=== PATIENT | male | born 1940 | race Caucasian/White ===

== ENCOUNTER 2017-07-21 08:00 | Outpatient (CLI) | payer MEDICARE ==
[2017-07-21 13:10] LABS: ALBUMIN/GLOBULIN RATIO 1.3 (1.0-2.2); BILIRUBIN,TOTAL 0.7 mg/dL (0.2-1.0); BUN - BLOOD UREA NITROGEN 20 mg/dL (6-20); CALCIUM 8.9 mg/dL (8.5-10.3); CARBON DIOXIDE - CO2 25 mmol/L (21-32); CHLORIDE 104 mmol/L (101-111); CHOL/HDL RATIO 3.9 (<5.0); CHOLESTEROL 154 mg/dL; CREATININE 0.9 mg/dL (0.6-1.2); GFR - MDRD 82 (>89); GLUCOSE 138 mg/dL (70-100); HDL CHOLESTEROL 40 mg/dL; LDL/HDL RATIO 1.9 (<3.6); SODIUM 136 mmol/L (135-145); TOTAL PROTEIN 7.3 g/dL (6.7-8.2); TRIGLYCERIDES 191 mg/dL; VLDL CHOLESTEROL 38 mg/dL
== END 2017-07-21 08:01 | disposition home or self-care (01) ==
LOC: LAB.N 08:00
PROVIDERS: ATTEND Internal Medicine Cardiovascular Disease
DX: I25.10 Atherosclerotic heart disease of native coronary artery without angina pectoris (principal)
CPT/HCPCS: 36415; 80053; 80061

== ENCOUNTER 2017-09-21 15:00 | Outpatient (CLI) | payer MEDICARE, OTHER ==
[2017-09-21 13:14] LABS: HEMOGLOBIN A1C 0.56 g/dL
[2017-09-21 13:15] LABS: CALCIUM 8.8 mg/dL (8.5-10.3)
== END 2017-09-21 15:01 | disposition home or self-care (01) ==
LOC: LAB.N 15:00
PROVIDERS: ATTEND Family Medicine
DX: R73.01 Impaired fasting glucose (principal)
CPT/HCPCS: 36415; 80048; 83036

== ENCOUNTER 2018-02-02 08:00 | Outpatient (CLI) | payer MEDICARE, OTHER ==
[2018-02-02 12:35] LABS: HB2 TOTAL 13.8 g/dL; HEMOGLOBIN A1C 0.48 g/dL; HEMOGLOBIN A1C % 5.3 % (4.6-6.2)
== END 2018-02-02 08:01 | disposition home or self-care (01) ==
LOC: LAB.N 08:00
PROVIDERS: ATTEND Physician Assistant Medical
DX: R73.01 Impaired fasting glucose (principal); E78.5 Hyperlipidemia, unspecified; I10 Essential (primary) hypertension; E66.9 Obesity, unspecified; I25.10 Atherosclerotic heart disease of native coronary artery without angina pectoris
CPT/HCPCS: 36415; 83036

== ENCOUNTER 2018-05-17 09:03 | Outpatient (CLI) | payer MEDICARE, OTHER ==
[2018-05-17 13:37] LABS: BASOPHILS # (AUTO) 0.1 10^3/uL (0.0-0.1); BASOPHILS % (AUTO) 0.8 %; EOSINOPHILS # (AUTO) 0.4 10^3/uL (0.0-0.7); EOSINOPHILS % (AUTO) 5.1 %; HGB - HEMOGLOBIN 12.7 g/dL (14.0-18.0); LYMPHOCYTES % (AUTO) 25.8 %; MEAN CORPUSCULAR HEMOGLOBIN 33.7 pg (27.0-31.0); MEAN CORPUSCULAR HGB CONC 33.4 g/dL (32.0-36.0); MEAN CORPUSCULAR VOLUME 100.7 fL (80.0-94.0); MEAN PLATELET VOLUME 9.4 fL (7.4-11.4); MONOCYTES # (AUTO) 1.3 10^3/uL (0.0-1.0); MONOCYTES % (AUTO) 16.5 %; NEUTROPHILS # (AUTO) 4.1 10^3/uL (1.5-6.6); NEUTROPHILS % (AUTO) 51.8 %; PLT - PLATELET COUNT 235 10^3/uL (130-450); RED BLOOD COUNT 3.77 10^6/uL (4.70-6.10); RED CELL DISTRIBUTION WIDTH 13.4 % (12.0-15.0); WHITE BLOOD COUNT 7.8 x10^3/uL (4.8-10.8)
[2018-05-17 14:22] LABS: ALBUMIN 3.8 g/dL (3.2-5.5); ALKALINE PHOSPHATASE 43 IU/L (42-121); ALT ALANINE AMINOTRANSFERASE 11 IU/L (10-60); AST ASPARTATE AMINOTRANSFERASE 20 IU/L (10-42); BILIRUBIN,TOTAL 0.7 mg/dL (0.2-1.0); BUN - BLOOD UREA NITROGEN 23 mg/dL (6-20); CALCIUM 9.1 mg/dL (8.5-10.3); CARBON DIOXIDE - CO2 27 mmol/L (21-32); CHLORIDE 103 mmol/L (101-111); CHOL/HDL RATIO 3.9 (<5.0); CHOLESTEROL 161 mg/dL; GFR - MDRD 72 (>89); GLUCOSE 124 mg/dL (70-100); HDL CHOLESTEROL 41 mg/dL; LDL CHOLESTEROL,CALCULATED 84 mg/dL; SODIUM 137 mmol/L (135-145); TOTAL PROTEIN 7.6 g/dL (6.7-8.2); VLDL CHOLESTEROL 36 mg/dL
== END 2018-05-17 09:04 | disposition home or self-care (01) ==
LOC: LAB.N 09:03
PROVIDERS: ATTEND Family Medicine
DX: E78.5 Hyperlipidemia, unspecified (principal); I10 Essential (primary) hypertension
CPT/HCPCS: 36415; 80053; 80061; 83721; 85025

== ENCOUNTER 2018-07-13 08:00 | Outpatient (CLI) | payer MEDICARE, OTHER ==
[2018-07-13 13:45] LABS: BASOPHILS % (AUTO) 0.7 %; EOSINOPHILS # (AUTO) 0.4 10^3/uL (0.0-0.7); EOSINOPHILS % (AUTO) 5.5 %; HGB - HEMOGLOBIN 12.7 g/dL (14.0-18.0); LYMPHOCYTES # (AUTO) 1.7 10^3/uL (1.5-3.5); LYMPHOCYTES % (AUTO) 25.7 %; MEAN CORPUSCULAR HEMOGLOBIN 34.2 pg (27.0-31.0); MEAN CORPUSCULAR HGB CONC 34.9 g/dL (32.0-36.0); MEAN PLATELET VOLUME 9.6 fL (7.4-11.4); MEAN RETIC VALUE 120.4; MONOCYTES # (AUTO) 1.2 10^3/uL (0.0-1.0); MONOCYTES % (AUTO) 17.8 %; NEUTROPHILS # (AUTO) 3.4 10^3/uL (1.5-6.6); NEUTROPHILS % (AUTO) 50.3 %; PLT - PLATELET COUNT 197 10^3/uL (130-450); RED BLOOD COUNT 3.71 10^6/uL (4.70-6.10); RED CELL DISTRIBUTION WIDTH 13.7 % (12.0-15.0); WHITE BLOOD COUNT 6.7 x10^3/uL (4.8-10.8)
[2018-07-13 13:54] LABS: HB2 TOTAL 13.8 g/dL; HEMOGLOBIN A1C 0.53 g/dL; HEMOGLOBIN A1C % 5.7 % (4.6-6.2)
[2018-07-13 14:03] LABS: CALCIUM 9.1 mg/dL (8.5-10.3)
[2018-07-13 14:11] LABS: FERRITIN 306.8 ng/mL (23.9-336.2)
== END 2018-07-13 08:01 | disposition home or self-care (01) ==
LOC: LAB.N 08:00
PROVIDERS: ATTEND Family Medicine
DX: D53.9 Nutritional anemia, unspecified (principal); R73.01 Impaired fasting glucose
CPT/HCPCS: 36415; 80048; 82607; 82728; 82746; 83036; 83540; 84466; 85025; 85044

== ENCOUNTER 2019-07-14 08:00 | Outpatient (CLI) | payer MEDICARE, OTHER ==
[2019-07-14 12:02] LABS: BASOPHILS # (AUTO) 0.1 10^3/uL (0.0-0.1); BASOPHILS % (AUTO) 0.7 %; EOSINOPHILS # (AUTO) 0.4 10^3/uL (0.0-0.7); EOSINOPHILS % (AUTO) 5.6 %; HGB - HEMOGLOBIN 11.5 g/dL (14.0-18.0); LYMPHOCYTES # (AUTO) 1.9 10^3/uL (1.5-3.5); LYMPHOCYTES % (AUTO) 27.5 %; MEAN CORPUSCULAR HEMOGLOBIN 33.2 pg (27.0-31.0); MEAN CORPUSCULAR HGB CONC 31.9 g/dL (32.0-36.0); MEAN CORPUSCULAR VOLUME 104.3 fL (80.0-94.0); MEAN PLATELET VOLUME 11.7 fL (7.4-11.4); MONOCYTES # (AUTO) 1.2 10^3/uL (0.0-1.0); MONOCYTES % (AUTO) 17.7 %; NEUTROPHILS # (AUTO) 3.2 10^3/uL (1.5-6.6); NEUTROPHILS % (AUTO) 48.2 %; PLT - PLATELET COUNT 206 10^3/uL (130-450); RED BLOOD COUNT 3.46 10^6/uL (4.70-6.10); RED CELL DISTRIBUTION WIDTH 13.5 % (12.0-15.0); WHITE BLOOD COUNT 6.7 x10^3/uL (4.8-10.8)
[2019-07-14 12:13] LABS: ALBUMIN/GLOBULIN RATIO 1.2 (1.0-2.2); ALKALINE PHOSPHATASE 35 IU/L (42-121); ALT ALANINE AMINOTRANSFERASE 12 IU/L (10-60); AST ASPARTATE AMINOTRANSFERASE 21 IU/L (10-42); BILIRUBIN,TOTAL 0.6 mg/dL (0.2-1.0); BUN - BLOOD UREA NITROGEN 19 mg/dL (6-20); CALCIUM 9.3 mg/dL (8.5-10.3); CARBON DIOXIDE - CO2 28 mmol/L (21-32); CHLORIDE 106 mmol/L (101-111); CHOL/HDL RATIO 4.3 (<5.0); CHOLESTEROL 150 mg/dL; CREATININE 0.9 mg/dL (0.6-1.2); GFR - MDRD 82 (>89); GLUCOSE 124 mg/dL (70-100); HDL CHOLESTEROL 35 mg/dL; LDL CHOLESTEROL,CALCULATED 71 mg/dL; SODIUM 140 mmol/L (135-145); TOTAL PROTEIN 7.4 g/dL (6.7-8.2); VLDL CHOLESTEROL 44 mg/dL
== END 2019-07-14 23:59 | disposition home or self-care (01) ==
LOC: LAB.N 08:00
PROVIDERS: ATTEND Family Medicine
DX: E78.5 Hyperlipidemia, unspecified (principal); Z12.5 Encounter for screening for malignant neoplasm of prostate; I10 Essential (primary) hypertension
CPT/HCPCS: 36415; 80061; G0103; 80053; 83721; 84153; 84443; 85025

== ENCOUNTER 2019-08-11 10:58 | Outpatient (CLI) | payer MEDICARE, OTHER ==
[2019-08-11 18:42] LABS: ABSOLUTE RETICS # AUTO 0.062 10^6/uL (0.020-0.110); BASOPHILS # (AUTO) 0.1 10^3/uL (0.0-0.1); BASOPHILS % (AUTO) 0.9 %; EOSINOPHILS # (AUTO) 0.4 10^3/uL (0.0-0.7); EOSINOPHILS % (AUTO) 4.7 %; HGB - HEMOGLOBIN 12.5 g/dL (14.0-18.0); LYMPHOCYTES # (AUTO) 2.1 10^3/uL (1.5-3.5); MEAN CORPUSCULAR HEMOGLOBIN 34.8 pg (27.0-31.0); MEAN CORPUSCULAR HGB CONC 33.2 g/dL (32.0-36.0); MEAN CORPUSCULAR VOLUME 104.7 fL (80.0-94.0); MEAN PLATELET VOLUME 11.6 fL (7.4-11.4); MONOCYTES # (AUTO) 1.4 10^3/uL (0.0-1.0); MONOCYTES % (AUTO) 17.7 %; NEUTROPHILS % (AUTO) 50.2 %; PLT - PLATELET COUNT 212 10^3/uL (130-450); RED BLOOD COUNT 3.59 10^6/uL (4.70-6.10); RED CELL DISTRIBUTION WIDTH 13.2 % (12.0-15.0)
[2019-08-11 19:04] LABS: % IRON SATURATION 38 % (20-50); IRON 105 ug/dL (45-182); TOTAL IRON BINDING CAPACITY 274 ug/dL (250-450); TRANSFERRIN 196 mg/dL (180-329)
[2019-08-11 19:24] LABS: FOLATE 20.89 ng/mL (5.90 - >24.8)
== END 2019-08-11 23:59 | disposition home or self-care (01) ==
LOC: LAB.N 10:58
PROVIDERS: ATTEND Family Medicine
DX: D64.9 Anemia, unspecified (principal)
CPT/HCPCS: 36415; 82607; 82728; 82746; 83540; 84466; 85025; 85044

== ENCOUNTER 2019-08-14 10:58 | Outpatient (CLI) | payer MEDICARE, OTHER | END 2019-08-14 23:59 | disposition home or self-care (01) | LOC: LAB.R 10:58 | PROVIDERS: ATTEND Family Medicine | DX: D64.9 Anemia, unspecified (principal) | CPT/HCPCS: 82274 ==

== ENCOUNTER 2019-08-24 11:07 | Day surgery (SDC) | payer MEDICARE, OTHER ==
[2019-08-24] MEDS ORDERED: MIDAZOLAM 2 MG/2 ML VIAL IVP ONE (11:08)
[2019-08-24] MEDS ORDERED: fentaNYL 250 MCG/5 ML VIAL IVP ONE (11:08)
[2019-08-24] MEDS ORDERED: LACTATED RINGERS 1,000 ML IV ONE (11:27)
[2019-08-24 13:58] VITALS: BP 128/78
== END 2019-08-24 11:08 | disposition home or self-care (01) ==
LOC: SDS 11:07
PROVIDERS: ATTEND Surgery
PROC: 0DBM8ZZ Excision of Descending Colon, Via Natural or Artificial Opening Endoscopic (ICD-10-PCS; 2019-08-24)
PROC: 0DBN8ZZ Excision of Sigmoid Colon, Via Natural or Artificial Opening Endoscopic (ICD-10-PCS; 2019-08-24)
PROC: 0DBH8ZZ Excision of Cecum, Via Natural or Artificial Opening Endoscopic (ICD-10-PCS; principal; 2019-08-24 12:30)
DX: R19.5 Other fecal abnormalities (principal); D12.5 Benign neoplasm of sigmoid colon; D12.4 Benign neoplasm of descending colon; D12.0 Benign neoplasm of cecum; K64.8 Other hemorrhoids; K57.30 Diverticulosis of large intestine without perforation or abscess without bleeding; R09.89 Other specified symptoms and signs involving the circulatory and respiratory systems; I10 Essential (primary) hypertension; I25.10 Atherosclerotic heart disease of native coronary artery without angina pectoris; E66.9 Obesity, unspecified; Z68.41 Body mass index [BMI] 40.0-44.9, adult
CPT/HCPCS: 45380; 45385; J3010; J7120

== ENCOUNTER 2019-09-01 12:34 | Outpatient (CLI) | payer MEDICARE, OTHER ==
--- NOTE | 2019-09-04 14:16 | Ultrasound Report ---
Reason: L BRUIT Procedure Date: 09/01/2019 Accession Number: [id number] / [id number] Procedure: US - Carotid Doppler Complete CPT Code: FULL RESULT: EXAM: BILATERAL CAROTID AND VERTEBRAL ARTERY DUPLEX DOPPLER ULTRASOUND: EXAM DATE: 09/01/2019 01:37 PM CLINICAL HISTORY: Left bruit. COMPARISON: None. TECHNIQUE: Grayscale imaging, color Doppler, and duplex spectral Doppler were used to evaluate the carotid and vertebral arteries bilaterally. Static images were obtained. FINDINGS: Mild to moderate mixed calcified and noncalcified plaque is seen in the right greater than left internal carotid arteries. Normal antegrade flow is present in bilateral vertebral arteries. VELOCITIES (cm/sec): Right CCA mid: PSV 94 cm/sec CCA dist: PSV 95 cm/sec ICA prox: PSV 95 cm/sec, EDV 19 cm/sec ICA mid: PSV 96 cm/sec, EDV 30 cm/sec ICA dist: PSV 127 cm/sec, EDV 33 cm/sec ECA: PSV 130 cm/sec Vert: PSV 58 cm/sec ICA/CCA: 1.02 Left CCA mid: PSV 86 cm/sec CCA dist: PSV 76 cm/sec ICA prox: PSV 104 cm/sec, EDV 26 cm/sec ICA mid: PSV 75 cm/sec, EDV 23 cm/sec ICA dist: PSV 73 cm/sec, EDV 23 cm/sec ECA: PSV 168 cm/sec Vert: PSV 86 cm/sec ICA/CCA: 1.2 IMPRESSION: 1. 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 2. Elevated velocities in the right distal ICA is consistent with 50-69% stenosis. 3. In the left carotid artery there are no elevated carotid artery velocities to suggest hemodynamically significant stenosis. 4. Normal antegrade flow is present in bilateral vertebral arteries. General Recommendations: Stenosis =50% ICA - Follow-up ultrasound 6-12 months Stenosis <50% ICA - High Risk Patient with plaque - Follow-up ultrasound 1-2 years Normal Study but High Risk Patient - Follow-up ultrasound 3-5 years Management recommendations and diagnostic criteria are based on current IAC endorsed standards in Carotid Artery Stenosis: Grayscale and Doppler Ultrasound Diagnosis. Validated velocity measurements with angiographic measurements and velocity criteria are extrapolated from diameter data as defined by the Society of Radiologists in Ultrasound Consensus Conference Radiology 2003; 229;340-346. RADIA
== END 2019-09-01 12:35 | disposition home or self-care (01) ==
LOC: DI 12:34
PROVIDERS: ATTEND Surgery
DX: I65.23 Occlusion and stenosis of bilateral carotid arteries (principal)
CPT/HCPCS: 93880

== ENCOUNTER 2020-07-29 08:00 | Outpatient (CLI) | payer MEDICARE, OTHER ==
[2020-07-29 12:07] LABS: BASOPHILS # (AUTO) 0.1 10^3/uL (0.0-0.1); BASOPHILS % (AUTO) 0.9 %; EOSINOPHILS # (AUTO) 0.5 10^3/uL (0.0-0.7); EOSINOPHILS % (AUTO) 5.9 %; HGB - HEMOGLOBIN 12.3 g/dL (14.0-18.0); LYMPHOCYTES # (AUTO) 2.1 10^3/uL (1.5-3.5); LYMPHOCYTES % (AUTO) 27.1 %; MEAN CORPUSCULAR HEMOGLOBIN 35.3 pg (27.0-31.0); MEAN CORPUSCULAR HGB CONC 33.3 g/dL (32.0-36.0); MEAN PLATELET VOLUME 11.3 fL (7.4-11.4); MONOCYTES # (AUTO) 1.4 10^3/uL (0.0-1.0); MONOCYTES % (AUTO) 18.3 %; NEUTROPHILS # (AUTO) 3.7 10^3/uL (1.5-6.6); NEUTROPHILS % (AUTO) 47.2 %; PLT - PLATELET COUNT 214 10^3/uL (130-450); RED BLOOD COUNT 3.48 10^6/uL (4.70-6.10); RED CELL DISTRIBUTION WIDTH 13.2 % (12.0-15.0); WHITE BLOOD COUNT 7.9 x10^3/uL (4.8-10.8)
[2020-07-29 12:27] LABS: ALBUMIN 4.1 g/dL (3.2-5.5); ALBUMIN/GLOBULIN RATIO 1.3 (1.0-2.2); ALKALINE PHOSPHATASE 37 IU/L (42-121); ALT ALANINE AMINOTRANSFERASE 13 IU/L (10-60); AST ASPARTATE AMINOTRANSFERASE 21 IU/L (10-42); BILIRUBIN,TOTAL 0.7 mg/dL (0.2-1.0); BUN - BLOOD UREA NITROGEN 17 mg/dL (6-20); CARBON DIOXIDE - CO2 25 mmol/L (21-32); CHLORIDE 107 mmol/L (101-111); CHOL/HDL RATIO 4.7 (<5.0); CHOLESTEROL 188 mg/dL; CREATININE 0.9 mg/dL (0.6-1.2); GLUCOSE 121 mg/dL (70-100); HDL CHOLESTEROL 40 mg/dL; LDL CHOLESTEROL,CALCULATED 80 mg/dL; SODIUM 140 mmol/L (135-145); TOTAL PROTEIN 7.3 g/dL (6.7-8.2); VLDL CHOLESTEROL 68 mg/dL
== END 2020-07-29 23:59 | disposition home or self-care (01) ==
LOC: LAB.WCP 08:00
PROVIDERS: ATTEND Internal Medicine Cardiovascular Disease
DX: I10 Essential (primary) hypertension (principal); I25.10 Atherosclerotic heart disease of native coronary artery without angina pectoris
CPT/HCPCS: 36415; 80053; 80061; 83721; 84443; 85025

== ENCOUNTER 2020-11-26 08:07 | Outpatient (CLI) | payer MEDICARE, OTHER ==
[2020-11-26 12:31] LABS: BASOPHILS % (AUTO) 0.8 %; EOSINOPHILS % (AUTO) 5.1 %; HGB - HEMOGLOBIN 12.5 g/dL (14.0-18.0); LYMPHOCYTES % (AUTO) 19.5 %; MEAN CORPUSCULAR HEMOGLOBIN 35.7 pg (27.0-31.0); MEAN CORPUSCULAR HGB CONC 33.9 g/dL (32.0-36.0); MEAN CORPUSCULAR VOLUME 105.4 fL (80.0-94.0); NEUTROPHILS % (AUTO) 58.3 %; PLT - PLATELET COUNT 228 10^3/uL (130-450); RED CELL DISTRIBUTION WIDTH 13.2 % (12.0-15.0); WHITE BLOOD COUNT 9.8 x10^3/uL (4.8-10.8)
[2020-11-26 12:37] LABS: ABNORMAL LYMPHS % (MANUAL) 0 %
[2020-11-26 12:49] LABS: ALBUMIN 4.1 g/dL (3.2-5.5); ALBUMIN/GLOBULIN RATIO 1.2 (1.0-2.2); ALKALINE PHOSPHATASE 39 IU/L (42-121); ALT ALANINE AMINOTRANSFERASE 12 IU/L (10-60); AST ASPARTATE AMINOTRANSFERASE 20 IU/L (10-42); BILIRUBIN,TOTAL 0.8 mg/dL (0.2-1.0); BUN - BLOOD UREA NITROGEN 18 mg/dL (6-20); CALCIUM 9.1 mg/dL (8.5-10.3); CARBON DIOXIDE - CO2 25 mmol/L (21-32); CHLORIDE 102 mmol/L (101-111); CHOL/HDL RATIO 3.5 (<5.0); CHOLESTEROL 146 mg/dL; CREATININE 1.1 mg/dL (0.6-1.2); GLUCOSE 141 mg/dL (70-100); HDL CHOLESTEROL 42 mg/dL; LDL CHOLESTEROL,CALCULATED 77 mg/dL; LDL/HDL RATIO 1.8 (<3.6); SODIUM 136 mmol/L (135-145); TOTAL PROTEIN 7.4 g/dL (6.7-8.2); VLDL CHOLESTEROL 27 mg/dL
[2020-11-26 12:58] LABS: CREATININE,URINE 323.4 mg/dL; MICROALBUM/CREATININE RATIO,UR 116.9 ug/mg (<30.0); MICROALBUMIN,URINE 37.8 mg/dL (0-300.0)
[2020-11-26 13:31] LABS: BAND NEUTROPHILS % (MANUAL) 1 %; BASOPHILS # (MANUAL) 0.1 10^3/uL (0-0.1); BASOPHILS % (MANUAL) 1 %; EOSINOPHILS # (MANUAL) 0.7 10^3/uL (0-0.7); LYMPHOCYTES # (MANUAL) 1.8 10^3/uL (1.5-3.5); LYMPHOCYTES % (MANUAL) 18 %; MONOCYTES # (MANUAL) 1.5 10^3/uL (0.0-1.0)
[2020-11-26 13:32] LABS: DIFFERENTIAL COMMENT MANUAL DIFFERENTIAL; PLATELET ESTIMATE, MANUAL NORMAL (130-450,000) (NORMAL); PLATELET MORPHOLOGY NORMAL APP (NORMAL)
[2020-11-26 13:46] LABS: HEMOGLOBIN A1c% 5.7 % (4.27-6.07)
== END 2020-11-26 08:08 | disposition home or self-care (01) ==
LOC: LAB.N 08:07
PROVIDERS: ATTEND Internal Medicine
DX: I10 Essential (primary) hypertension (principal); R73.01 Impaired fasting glucose
CPT/HCPCS: 36415; 80053; 80061; 82043; 82570; 83036; 83721; 84443; 85025

== ENCOUNTER 2021-07-09 10:45 | Outpatient (CLI) | payer MEDICARE, OTHER ==
[2021-07-09 17:39] LABS: BASOPHILS # (AUTO) 0.1 10^3/uL (0.0-0.1); BASOPHILS % (AUTO) 0.8 %; EOSINOPHILS # (AUTO) 0.5 10^3/uL (0.0-0.7); EOSINOPHILS % (AUTO) 5.5 %; HCT - HEMATOCRIT 38.7 % (42.0-52.0); HGB - HEMOGLOBIN 12.6 g/dL (14.0-18.0); LYMPHOCYTES # (AUTO) 2.3 10^3/uL (1.5-3.5); MEAN CORPUSCULAR HEMOGLOBIN 34.6 pg (27.0-31.0); MEAN CORPUSCULAR HGB CONC 32.6 g/dL (32.0-36.0); MEAN CORPUSCULAR VOLUME 106.3 fL (80.0-94.0); MEAN PLATELET VOLUME 12.1 fL (7.4-11.4); MONOCYTES # (AUTO) 1.4 10^3/uL (0.0-1.0); MONOCYTES % (AUTO) 16.4 %; NEUTROPHILS # (AUTO) 4.2 10^3/uL (1.5-6.6); NEUTROPHILS % (AUTO) 49.8 %; PLT - PLATELET COUNT 225 10^3/uL (130-450); RED BLOOD COUNT 3.64 10^6/uL (4.70-6.10); RED CELL DISTRIBUTION WIDTH 13.3 % (12.0-15.0); WHITE BLOOD COUNT 8.4 x10^3/uL (4.8-10.8)
[2021-07-09 18:09] LABS: ALBUMIN 4.6 g/dL (3.2-5.5); ALBUMIN/GLOBULIN RATIO 1.4 (1.0-2.2); BILIRUBIN,TOTAL 0.7 mg/dL (0.2-1.0); CALCIUM 8.9 mg/dL (8.5-10.3); CREATININE 0.9 mg/dL (0.6-1.2); POTASSIUM 4.6 mmol/L (3.5-5.0); TOTAL PROTEIN 7.9 g/dL (6.7-8.2)
== END 2021-07-09 10:46 | disposition home or self-care (01) ==
LOC: LAB.N 10:45
PROVIDERS: ATTEND Family Medicine
DX: R10.31 Right lower quadrant pain (principal)
CPT/HCPCS: 36415; 80053; 85025

== ENCOUNTER 2021-07-18 10:37 | Outpatient (CLI) | payer MEDICARE, OTHER ==
[2021-07-18] MEDS ORDERED: IOPAMIDOL-300 100 ML VIAL ONE (10:47)
[2021-07-18] MEDS ORDERED: IOVERSOL 320 50 ML VIAL ONE (10:47)
[2021-07-18] MEDS ORDERED: IOPAMIDOL-300 100 ML VIAL IVP ONE (14:48)
[2021-07-18] MEDS ORDERED: IOVERSOL 320 50 ML VIAL PO ONE (14:48)
--- NOTE | 2021-07-21 08:25 | CT Report ---
PROCEDURE: Abdomen/Pelvis W INDICATIONS: RLQ ABDOMINAL PAIN CONTRAST: IV CONTRAST: Isovue 300 ml: 100 PO CONTRAST: Optiray 320 ml50 TECHNIQUE: After the administration of intravenous and oral contrast, 5 mm thick sections acquired from the diap hragms to the symphysis. 5 mm thick coronal and sagittal reformats were acquired. For radiation dos e reduction, the following was used: automated exposure control, adjustment of mA and/or kV accordin g to patient size. COMPARISON: CT abdomen with contrast report, 03/12/2010. FINDINGS: Image quality: Excellent. ABDOMEN: Lung bases: Bibasilar atelectasis. Heart size is mildly increased. There is moderate coronary artery calcification. Small hiatal hernia.. Solid organs: There are calcified granulomas in liver and spleen. Liver and spleen are normal in siz e and enhancement. Gallbladder contains multiple calcified gallstones. Biliary system is non dilate d. Pancreas enhances normally. No adrenal nodules. Kidneys demonstrate normal size and enhancement , without hydronephrosis. There is a 1.3 cm hypodense nodule in the superior pole of the right kidne y. Peritoneum and bowel: Bowel loops demonstrate normal wall thickness and caliber. There are scattere d colonic diverticula, most numerous in sigmoid colon. No CT findings to suggest acute diverticulitis . Normal appendix. No free fluid or air. Nodes and vessels: No retroperitoneal or mesenteric adenopathy by size criteria. Aorta and inferior vena cava are normal in size. Moderate osteoarthrosis calcifications. Miscellaneous: Small fat-containing umbilical hernia. PELVIS: Genitourinary: Bladder wall thickness is normal. Prostate is enlarged. Miscellaneous: No inguinal hernias or adenopathy. Bones: No suspicious bony lesions. No vertebral body compression fractures. There are severe degen erative changes in lumbar spine. IMPRESSION: 1. No acute intra-abdominal or pelvic process. A cause for right lower quadrant pain is not identifie d. 2. Normal appendix. 3. Diverticulosis without diverticulitis. 4. Cholelithiasis. 5. Remote granulomatous disease involving the liver and spleen. 6. Enlarged prostate. 7. Mild cardiomegaly moderate coronary artery constipation. 8. 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 Reviewed by: Janel Ricks MD on 07/21/2021 8:23 AM PDT Approved by: Janel Ricks MD on 07/21/2021 8:23 AM PDT Station ID: [id number]
== END 2021-07-18 10:38 | disposition home or self-care (01) ==
LOC: DI 10:37
PROVIDERS: ATTEND Family Medicine
DX: R10.31 Right lower quadrant pain (principal); K57.30 Diverticulosis of large intestine without perforation or abscess without bleeding; K80.20 Calculus of gallbladder without cholecystitis without obstruction; N40.0 Benign prostatic hyperplasia without lower urinary tract symptoms; I51.7 Cardiomegaly; K76.89 Other specified diseases of liver; D73.89 Other diseases of spleen; M47.816 Spondylosis without myelopathy or radiculopathy, lumbar region
CPT/HCPCS: 74177; Q9967

== ENCOUNTER 2022-02-02 08:08 | Outpatient (CLI) | payer MEDICARE, OTHER ==
[2022-02-02 12:54] LABS: ALBUMIN 4.4 g/dL (3.2-5.5); ALBUMIN/GLOBULIN RATIO 1.5 (1.0-2.2); ALKALINE PHOSPHATASE 37 IU/L (42-121); ALT ALANINE AMINOTRANSFERASE < 10 IU/L (10-60); AST ASPARTATE AMINOTRANSFERASE 16 IU/L (10-42); BILIRUBIN,TOTAL 0.6 mg/dL (0.2-1.0); BUN - BLOOD UREA NITROGEN 24 mg/dL (6-20); CALCIUM 9.3 mg/dL (8.5-10.3); CARBON DIOXIDE - CO2 27 mmol/L (21-32); CHLORIDE 101 mmol/L (101-111); GFR - MDRD 72 (>89); GLUCOSE 135 mg/dL (70-100); POTASSIUM 3.9 mmol/L (3.5-5.0); SODIUM 137 mmol/L (135-145); TOTAL PROTEIN 7.4 g/dL (6.7-8.2)
== END 2022-02-02 08:09 | disposition home or self-care (01) ==
LOC: LAB.N 08:08
PROVIDERS: ATTEND Nurse Practitioner
DX: I48.19 Other persistent atrial fibrillation (principal)
CPT/HCPCS: 36415; 80053

== ENCOUNTER 2022-10-08 10:43 | Outpatient (CLI) | payer MEDICARE, OTHER | END 2022-10-08 23:59 | disposition E | LOC: EMS 10:43 ==